=== PATIENT | male | born 1990 | race Caucasian/White ===

== ENCOUNTER 2021-12-06 16:28 | Observation (INO) ==
[2021-12-06 17:52] LABS: Basophils # (auto) 0.06 K/uL (0-0.2); Basophils % (auto) 0.6 %; Eosinophils # (auto) 0.18 K/uL (0-0.50); Eosinophils % (auto) 1.7 %; Hematocrit (blood only) 45.3 % (40.1-51.0); Hemoglobin 15.8 g/dl (14.0-18.0); Immature Granulocytes # (auto) 0.06 K/uL (0.00-0.02); Immature Granulocytes % (auto) 0.6 %; Lymphocytes # (auto) 2.19 K/uL (1.2-3.4); Lymphocytes % (auto) 20.8 %; Mean Corpuscular Hemoglobin 30.6 pg (25.0-34.0); Mean Corpuscular Hgb Conc 34.9 g/dL (32.0-36.0); Mean Corpuscular Volume 87.6 fL (80.0-100.0); Mean Platelet Volume 10.7 fL (9.4-12.4); Monocytes # (auto) 0.95 K/uL (0.24-0.82); Neutrophils % (auto) 67.3 %; Platelet Count 222 K/uL (130-400); RDW Coefficient of Variation 12.2 % (11.5-14.5); Red Blood Count 5.17 M/uL (4.63-6.08); White Blood Count 10.54 K/ul (4.8-10.8)
[2021-12-06 18:06] LABS: Albumin Globulin Ratio 1.3 (0.9-2); Albumin Level 4.5 gm/dl (3.4-5.0); BUN Creatinine Ratio 15.4 (10-20); Bilirubin,Total 0.6 mg/dl (0.2-1.0); Calcium 9.5 mg/dl (8.5-10.1); Creatinine Clr Calc Pharmacy 120.8 ml/min; Est GFR (African American) 95.7 ml/min; Est GFR (Non-African American) 82.6 ml/min; Globulin 3.4 gm/dl (2.5-4.0); Potassium 4.1 mmol/L (3.5-5.1); Total Protein 7.9 gm/dl (6.0-8.3)
[2021-12-06] MEDS ORDERED: SODIUM CHLORIDE 0.9% 1000ML 1,000 ML IV ONE (18:42)
[2021-12-06] MEDS ORDERED: cefTRIAXone SODIUM 2,000 MG/70 ML BAG IV STA (18:42)
--- NOTE | 2021-12-06 18:45 | Emergency Department Note ---
Impression & Plan Cellulitis and abscess of face, Dental abscess ED Provider Note NAME: YASH ZARATE III AGE: 31 SEX: M : 1990 ARRIVES VIA: Walk-In INFORMANT: Patient, ED PROVIDER(S): Willie Luis DO CHIEF COMPLAINT: Dental infection HPI: The patient is a 31-year-old male who presented to the emergency department for an evaluation of dental pain and swelling. The patient was noted to have symptoms for approximately 1-1/2 weeks. He did present to our emergency department last week for similar complaints. He had a CT of his face which did show an abscess. He was started on clindamycin. He called to try to see a dentist and has a follow-up appointment this Monday but his symptoms are worsening so he presented back to the emergency department. He did call the emergency department initially and was told to return to the emergency department. He denies having any vomiting. He states he has pain when he tries to open his mouth. ROS: See above HPI for pertinent positives & negatives. A total of 10 systems reviewed and were otherwise negative. PAST MEDICAL HISTORY: See Below PAST SURGICAL HISTORY: See Below FAMILY HISTORY: See Below SOCIAL HISTORY: See Below HOME MEDICATIONS: See Below ALLERGIES: See Below VITALS: See Below PHYSICAL EXAMINATION: GENERAL: Patient is awake alert in no acute distress patient is resting comfortably and showing no signs of anxiety EYES: The conjunctivae are clear. The pupils are round and reactive. EARS, NOSE, MOUTH AND THROAT: The nose is without any evidence of any deformity. There is a previous dental carry with a filling on the left lower premolar. This area is tender to percussion. There is buccal mucosal swelling. There is no gumline swelling. NECK: The neck is nontender and supple. RESPIRATORY: Normal respiratory effort is noted there is no evidence of wheezing rhonchi or rales CARDIOVASCULAR: Regular rate and rhythm noted there no murmurs rubs or gallops normal S1 normal S2. GASTROINTESTINAL: The abdomen is soft. Abdomen is nontender. MUSCULOSKELETAL/EXTREMITIES: There is no evidence of gross deformity full range of motion is noted in the hips and shoulders. SKIN: There is no obvious evidence of any rash. There are no petechiae, pallor or cyanosis noted. NEUROLOGIC: Patient is awake alert and oriented x3 MEDICAL DECISION MAKING: The patient is a 31-year-old male who presented to the emergency department for an evaluation of facial pain and swelling. The patient was recently seen in our facility and diagnosed with facial cellulitis with an abscess. The patient was started on oral antibiotics but unfortunately was not getting better. He presented to the emergency department because of worsening swelling and pain. The patient did have trismus on physical exam. I discussed patient's laboratory results with him. I discussed his condition with Dr. Blackmon who is on for oral maxillofacial. He does feel the patient would benefit from surgical intervention. He was felt to be a good candidate for inpatient management followed by surgical management in the morning. I discussed this plan with the patient and he was agreeable. I discussed his condition with the on-call [facility] hospitalist. They have agreed to evaluate the patient in the emergency department for further management and disposition. Triage Nursing notes reviewed. Prior medical records reviewed Vital Signs: reviewed and remarkable for no significant abnormalities Differential diagnosis: Dental caries, dental abscess, Ludwigs angina, Vincent angina, dental fracture, facial cellulitis, parotitis, osteomyelitis, sinus infection, peritonsillar abscess. ER treatment provided: See below Diagnostics interpreted by me: ECG: none Laboratory studies: As stated above and show below. Imaging studies: See below Consultation(s): I discussed this case with Dr. Blackmon. I discussed this case with Nia leavitt. Past Med/Surg History Medical History Anxiety Asthma GERD (gastroesophageal reflux disease) Surgical History History of arthroscopy of knee Family History (Updated 12/06/21 @ 20:47 by LAMINE Man) Mother Cancer Father Diabetes Social History Smoking Status: Current every day smoker Cigarettes Per Day: 5; Second Hand Exposure: No; Do You Dip or Chew Tobacco: No; Tobacco Cessation Education Requested by Patient: No Hx Alcohol Use: Yes Alcohol type: beer Alcohol Intake Frequency: Monthly or Less Hx Substance Use: No Preferred Language: Divehi Communication Ability: Effective Lumber Checker Required: No Beliefs That Will Affect Care: None Current Living Situation: Significant Other Other Information That Helps Us Care for You: No Feels Safe at Home: Yes Safety Concerns: Feels Safe At This Time Assistive Devices: Glasses Allergies Allergies Allergy/AdvReac Type Severity Reaction Status Date / Time hydromorphone [From Dilaudid] Allergy Severe Difficulty Verified 12/04/21 20:21 Breathing nut - unspecified Allergy Severe Difficulty Verified 12/04/21 20:21 Breathing shellfish derived Allergy Severe Difficulty Verified 12/04/21 20:21 Breathing Home Meds Home Medications Medication Instructions Recorded Confirmed albuterol sulfate 90 mcg/actuation 2 puff inhalation QID PRN 05/29/20 12/06/21 aerosol inhaler (ProAir HFA) Shortness Of Breath Or Wheezing fluoxetine 10 mg tablet 10 mg PO DAILY 05/29/20 12/06/21 pantoprazole 40 mg tablet,delayed 40 mg PO HS 06/21/21 12/06/21 release famotidine 20 mg tablet 20 mg PO BID 11/02/21 12/06/21 fluoxetine 20 mg capsule 20 mg PO DAILY 11/02/21 12/06/21 omeprazole 40 mg capsule,delayed 40 mg PO QAM 12/04/21 12/06/21 release Previous Rx's Medication Instructions Recorded clindamycin HCl 150 mg capsule 450 mg PO TID 7 days #63 caps 12/04/21 Results & Data (ED) Vital Signs Vital Signs - 24 hr 12/06/21 16:35 12/06/21 19:07 Temperature 36.8 C Temperature Source Temporal Artery Scan Pulse Rate 99 H Pulse Rate [Finger] 67 Respiratory Rate 18 18 Blood Pressure 132/82 Blood Pressure [Right Arm] 105/60 Blood Pressure Mean 98 Blood Pressure Mean [Right Arm] 75 Blood Pressure Position [Right Arm] Semi-fowlers Pulse Oximetry 95 96 Oxygen Delivery Method Room Air Room Air Sepsis Recent Fever Within 48 Hours No Sepsis New/Unexplained Change in Mental Status No Sepsis Action Taken by Nursing No Action Required Home Medications Current Medication List: was personally reviewed by me Laboratory Data Attestation: I reviewed the patient's lab results. Result diagrams: 12/06/21 17:20 12/06/21 17:20 Lab Results 12/06/21 12/06/21 Range/Units 17:20 17:20 WBC 10.54 (4.8-10.8) K/ul RBC 5.17 (4.63-6.08) M/uL Hgb 15.8 (14.0-18.0) g/dl Hct 45.3 (40.1-51.0) % MCV 87.6 (80.0-100.0) fL MCH 30.6 (25.0-34.0) pg MCHC 34.9 (32.0-36.0) g/dL RDW Std Deviation 39.0 (36.4-46.3) fL RDW Coeff of Frank 12.2 (11.5-14.5) % Plt Count 222 (130-400) K/uL MPV 10.7 (9.4-12.4) fL Immature Gran % (Auto) 0.6 % Neut % (Auto) 67.3 % Lymph % (Auto) 20.8 % [place] % (Auto) 9.0 % Eos % (Auto) 1.7 % Baso % (Auto) 0.6 % Neut # (Auto) 7.10 H (1.4-6.5) K/uL Lymph # (Auto) 2.19 (1.2-3.4) K/uL [place] # (Auto) 0.95 H (0.24-0.82) K/uL Eos # (Auto) 0.18 (0-0.50) K/uL Baso # (Auto) 0.06 (0-0.2) K/uL Immature Gran # (Auto) 0.06 H (0.00-0.02) K/uL Sodium 138 (136-145) mmol/L Potassium 4.1 (3.5-5.1) mmol/L Chloride 104 (98-107) mmol/L Carbon Dioxide 28 (21-32) mmol/L Anion Gap 6 (3-11) BUN 18 (6-23) mg/dl Creatinine 1.17 (0.6-1.4) mg/dl Est Cr Clr Drug Dosing 120.8 ml/min Est GFR ( Amer) 95.7 ml/min Est GFR (Non-Af Amer) 82.6 ml/min BUN/Creatinine Ratio 15.4 (10-20) Glucose 96 (70-99(Fasting)) mg/dl Calcium 9.5 (8.5-10.1) mg/dl Total Bilirubin 0.6 (0.2-1.0) mg/dl AST 22 (13-39) U/L ALT 32 (7-52) U/L Alkaline Phosphatase 69 (34-104) U/L Total Protein 7.9 (6.0-8.3) gm/dl Albumin 4.5 (3.4-5.0) gm/dl Globulin 3.4 (2.5-4.0) gm/dl Albumin/Globulin Ratio 1.3 (0.9-2) Administered Medications Famotidine (Famotidine 20 Mg Tab) 20 mg PO BID TAMIKA Stop: 01/05/22 22:49 Last Admin: 12/06/21 23:55 Dose: 20 mg Documented By: LEONOR Pantoprazole Sodium (Pantoprazole 40 Mg Tab) 40 mg PO HS TAMIKA Stop: 01/05/22 22:49 Last Admin: 12/06/21 23:55 Dose: 40 mg Documented By: LEONOR Discontinued Medications Sodium Chloride (Nss 1000ml) 1,000 mls @ 999 mls/hr IV .Q1H1M ONE Stop: 12/06/21 19:42 Last Infusion: 12/06/21 20:12 Dose: 0 mls/hr Documented By: Admin: 12/06/21 19:06 Dose: 999 mls/hr Documented By: TRH Ceftriaxone Sodium (Rocephin) 2,000 mg in 70 mls @ 140 mls/hr IV NOW STA Stop: 12/06/21 19:11 Last Infusion: 12/06/21 19:38 Dose: 0 mls/hr Documented By: Admin: 12/06/21 19:06 Dose: 140 mls/hr Documented By: RENARD Ampicillin Sodium/Sulbactam Sodium 3,000 mg/ Sodium Chloride 108 mls @ 200 mls/hr IV NOW STA; Protocol Stop: 12/06/21 21:24 Last Infusion: 12/06/21 21:39 Dose: 0 mls/hr Documented By: Admin: 12/06/21 21:00 Dose: 200 mls/hr Documented By: KATHRYN Ketorolac Tromethamine (Ketorolac Tromethamine 15 Mg/Ml Vial) 10 mg IV NOW ONE Stop: 12/06/21 19:54 Last Admin: 12/06/21 20:38 Dose: 10 mg Documented By: RENARD Morphine Sulfate (Morphine Sulfate 4 Mg/Ml 1 Ml Carp\Vial) 4 mg IV NOW STA Stop: 12/06/21 19:54 Last Admin: 12/06/21 20:37 Dose: 4 mg Documented By: RENARD Ondansetron HCl (Ondansetron Inj 2 Mg/Ml 2 Ml Vial) 4 mg IV NOW STA Stop: 12/06/21 19:54 Last Admin: 12/06/21 20:37 Dose: 4 mg Documented By: RENARD Discharge Plan Visit Data Chief Complaint: Dental/Oral Stated Complaint: TOOTH ABSCESS/INFECTION ED Provider: Willie Luis Discharge Problem: Cellulitis and abscess of face, Dental abscess Patient Disposition: Admitted As Inpatient Discharge Instructions Interventions: ED Discharge Assessment Last Done: 12/06/21 22:21
[2021-12-06] MEDS ORDERED: KETOROLAC TROMETHAMINE 15 MG/ML VIAL IV ONE (19:53)
[2021-12-06] MEDS ORDERED: MoRPHine SULFATE 4 MG/ML 1 ML CARP\\VIAL IV STA (19:53)
[2021-12-06] MEDS ORDERED: ONDANSETRON INJ 2 MG/ML 2 ML VIAL IV STA (19:53)
[2021-12-06] MEDS ORDERED: AMPICILLIN/SULBACTAM SOD 3,000 MG in 0.9 % SODIUM CHLORIDE 100 ML IV STA (20:52)
--- NOTE | 2021-12-06 20:56 | History & Physical Report ---
Date of Service December 06, 2021 Assessment & Plan (1) Acute periapical abscess: Plan: Admit to [facility] Patient presenting from home with reports of worsening left cheek/dental pain and swelling Seen in the ED on 12/04 and diagnosed with dental abscess, discharged on cli ndamycin Soft tissue neck CT from 12/04/2021 shows 1.6 cm periapical lucency and adjacent 2.0 cm abscess Airway patent, patient hemodynamically stable Start IV Unasyn Pain control Maxillofacial consult --Dr. Blackmon notified by ED and planning on OR tomorrow (2) GERD (gastroesophageal reflux disease): Plan: Continue PPI and H2 [place] (3) DVT prophylaxis: Plan: SCDs History of Present Illness Chief Complaint: Dental pain Primary Care Provider: Leandro Warren PA-C 31-year-old male with PMH GERD, asthma, seasonal allergies, and other problems to below who presents to the ED for evaluation of dental pain. Patient seen in the ED on 12/04 and diagnosed with dental abscess. Discharged on clindamycin. Patient reports progressive worsening of swelling and pain. He then presented back to the ED for further evaluation. Reports difficulty opening his mouth. No difficulty swallowing or shortness of breath. Denies fevers and chills. No chest pain or shortness of breath. Denies abdominal pain, nausea, vomiting, diarrhea. No lightheadedness, dizziness, diaphoresis, syncopal events. Denies urinary symptoms. In the ED today, patient is hemodynamically stable. Labs are unremarkable. He received a dose of IV ceftriaxone. Dr. Blackmon with oral surgery was contacted and is planning on taking the patient to the OR tomorrow. Allergies Allergy/AdvReac Type Severity Reaction Status Date / Time hydromorphone [From Dilaudid] Allergy Severe Difficulty Verified 12/04/21 20:21 Breathing nut - unspecified Allergy Severe Difficulty Verified 12/04/21 20:21 Breathing shellfish derived Allergy Severe Difficulty Verified 12/04/21 20:21 Breathing Home Medications Medication Instructions Recorded Confirmed Type albuterol sulfate 90 mcg/actuation 2 puff inhalation QID PRN 05/29/20 12/06/21 History aerosol inhaler (ProAir HFA) Shortness Of Breath Or Wheezing fluoxetine 10 mg tablet 10 mg PO DAILY 05/29/20 12/06/21 History pantoprazole 40 mg tablet,delayed 40 mg PO HS 06/21/21 12/06/21 History release famotidine 20 mg tablet 20 mg PO BID 11/02/21 12/06/21 History fluoxetine 20 mg capsule 20 mg PO DAILY 11/02/21 12/06/21 History clindamycin HCl 150 mg capsule 450 mg PO TID 7 days #63 caps 12/04/21 12/06/21 Rx omeprazole 40 mg capsule,delayed 40 mg PO QAM 12/04/21 12/06/21 History release Past Med/Surg History Medical History Anxiety Asthma GERD (gastroesophageal reflux disease) Surgical History History of arthroscopy of knee Family History (Updated 12/06/21 @ 20:47 by LAMINE Man) Mother Cancer Father Diabetes Social History Smoking Status: Current every day smoker Hx Alcohol Use: Yes Alcohol type: beer Alcohol Intake Frequency: Monthly or Less Preferred Language: Maltese Feels Safe at Home: Yes Review of Systems Review of Systems: ROS per HPI, all other systems reviewed and negative Physical Exam Constitutional: WD/WN, vitals as above Eyes: PERRL, conjunctivae normal, anicteric sclerae ENMT: Ears: no external ear abnormality Nose: no external nose abnormality Mouth: + trismus Swelling noted to left cheek that is tender with mild palpation, no oral abscess or fluctuance noted Respiratory: normal respiratory effort, lungs clear to auscultation Cardiovascular: Rate/Rhythm: regular rate and regular rhythm Vessels: normal peripheral pulses Extremities: no edema Gastrointestinal (Abdomen): normal bowel sounds, soft, nontender, no hepatosplenomegaly Musculoskeletal: no cyanosis or clubbing, extremities motor strength 5/5 Skin: no rashes, warm and dry Neurologic: PERRL, EOMI, accommodation nl, no face palsy, no dysarthria Psychiatric: A+Ox3, euthymic affect Results & Data Results & Data ([facility]) Vital Signs (Past 12 Hours) Vital Signs Temp Pulse Pulse Resp BP BP Pulse Ox 12/06/21 19:07 67 18 105/60 96 12/06/21 16:35 36.8 C 99 H 18 132/82 95 O2 Del Method 07/18/22 19:07 Room Air 12/06/21 16:35 Room Air Laboratory Results Short CBC 12/06/21 Range/Units 17:20 WBC 10.54 (4.8-10.8) K/ul Hgb 15.8 (14.0-18.0) g/dl Hct 45.3 (40.1-51.0) % Plt Count 222 (130-400) K/uL BMP 12/06/21 17:20 Sodium 138 Potassium 4.1 Chloride 104 Carbon Dioxide 28 BUN 18 Creatinine 1.17 Glucose 96 Calcium 9.5 Liver Function 12/06/21 Range/Units 17:20 Total Bilirubin 0.6 (0.2-1.0) mg/dl AST 22 (13-39) U/L ALT 32 (7-52) U/L Alkaline Phosphatase 69 (34-104) U/L Albumin 4.5 (3.4-5.0) gm/dl Diagnostic Findings 12/04/[address] IMPRESSION: 1. A 1.6 cm periapical lucency at ADA 19 which demonstrates cortical breakthrough along the buccal surface and an adjacent 2 cm abscess. 2. There is associated skin thickening and subcutaneous fat stranding/edema within the left mandibular region likely representing an associated cellulitis. Code Status & VTE Plan VTE Prophylaxis Plan VTE Prophylaxis will be ordered: Yes Supervising Physician Co-Signing Physician Notes Patient was seen and examined with Nia RAMAN at bedside. Chart reviewed. Case discussed with her and agree with the documentation above in regards to HPI, physical exam, assessment and plan. In summary, this is a 31 old male who presented to the ED with worsening dental pain. She was seen in the ED 2 days back, found to have dental abscess with cellulitis and discharged on clindamycin but had worsening symptoms and came today. Doesn't look sick or septic. Labs unremarkable. Agree with iv Unasyn and pain management. Dr Blackmon planning for OR tomorrow. NPO after midnight. Rest as per the note above.
[2021-12-06] MEDS ORDERED: MoRPHine SULFATE 2 MG/ML CARP IV PRN (22:50)
[2021-12-06] MEDS ORDERED: ONDANSETRON INJ 2 MG/ML 2 ML VIAL IV PRN (22:50)
[2021-12-06] MEDS: PANTOprazole 40 MG TAB PO SCH (23:55)
[2021-12-06] MEDS: FAMOTIDINE 20 MG TAB PO SCH (23:55)
[2021-12-07] MEDS: MoRPHine SULFATE 4 MG/ML 1 ML CARP\\VIAL IV PRN ×2 (01:34→07:21)
[2021-12-07] MEDS: AMPICILLIN/SULBACTAM SOD 3,000 MG in 0.9 % SODIUM CHLORIDE 100 ML IV SCH ×5 (04:06→21:57)
--- NOTE | 2021-12-07 06:41 | Oral/Maxillofacial Consult ---
Date of Consultation December 07, 2021 Assessment & Plan (1) Cellulitis and abscess of face: (2) Dental abscess: History of Present Illness Attending Physician: Ryan Park MD History of Present Illness Oral Maxillofacial Surgery Exam Present Complaint: I have pain/swelling/drainage from my infected lower left tooth Symptoms have been ongoing for a while. Not responding to antibiotics ? infected cyst Oral Exam: Finding--significant swelling and tender gingival tissue with deep pocket formation left muco buccal fold and masseteric space, slight trismus . this looks to be a large cyst that has become infected Imaging: CT soft tissue neck wo con FINDINGS: Suboptimal evaluation of the neck due to the lack of intravenous contrast. The visualized brain parenchyma and orbits are unremarkable. The pterygopalatine fossa and parapharyngeal fat spaces are well-maintained. The parotid and submandibular glands are symmetric. There is mild left submandibular lymphadenopathy which is likely reactive. The major mucosal airways services appear intact. The epiglottis and prevertebral soft tissues are normal in thickness. The thyroid gland is unremarkable. The trachea is midline and patent. The lung apices are clear. No fractures within the visualized osseous structures. The paranasal sinuses and mastoid air cells are essentially clear. There is a large periapical lucency at the endodontically treated ADA 19. This measures 1.6 cm and demonstrates cortical breakthrough along the buccal surface. Although difficult to visualize without contrast. There appears to be an adjacent abscess within the buccal soft tissues of the left hemimandible which measures approximately 2 cm. There is overlying skin thickening and subcutaneous fat stranding/edema consistent with a cellulitis. IMPRESSION: 1. A 1.6 cm periapical lucency at ADA 19 which demonstrates cortical breakthrough along the buccal surface and an adjacent 2 cm abscess. 2. There is associated skin thickening and subcutaneous fat stranding/edema within the left mandibular region likely representing an associated cellulitis. Soft tissue: Significant swelling left cheek and mucobuccal fold # 19 tooth floor of the mouth, tongue, hard/soft palate, posterior pharyngeal area all with in normal limits, no pathology or abnormal findings noted. Oral Care: Overall oral care is good Occlusion: Class I TMJ exam: Limited opening not able to exam. Periodontal exam: Healthy gingival tissue without evidence of periodontal pathology except lower left side Head/Neck exam: Neck is supple, FROM, Able to extend and flex neck w/o difficulty, no masses other then swelling left side , no abnormalities, no airway issues, no evidence of sleep apnea. Treatment Plan: Excision large cyst lower left mandible body. I&D and extraction of # 19 Set up with general anesthesia in hospital vs. surgical due to complexity of the procedure I reviewed the treatment plan and consent with the patient . Understanding was expressed. Time was given for questions regarding the surgery, risks and post op care. Discussed alternative to treatment--procedure as planned, Do not do surgery The following teeth are decayed and fractured and removal is indicated NISHANT: # 19 with intraoral I&D Risks discussed: Bleeding,Pain,swelling,infection, dry socket, delayed healing, nerve injury to face,lips,tongue,chin area which could be permanent (rare). TMJ, jaw stiffness, change in bite (rare), ear pain (referred). Sinus problems like fistula or infection. Need to leave a small root fragment in place to avoid injury to nerve or sinus. Relationship of wisdom teeth to nerve/sinus and risk of jaw fracture. Home care reviewed: tooth brushing, rinsing, follow up care with Dr Blackmon. diet=[id number] dental. Discussed activity level, driving/work while on Rx pain Meds. Surgery to be set up NISHANT this morning Allergies Allergy/AdvReac Type Severity Reaction Status Date / Time hydromorphone [From Dilaudid] Allergy Severe Difficulty Verified 12/04/21 20:21 Breathing nut - unspecified Allergy Severe Difficulty Verified 12/04/21 20:21 Breathing shellfish derived Allergy Severe Difficulty Verified 12/04/21 20:21 Breathing Home Medications Medication Instructions Recorded Confirmed Type albuterol sulfate 90 mcg/actuation 2 puff inhalation QID PRN 05/29/20 12/06/21 History aerosol inhaler (ProAir HFA) Shortness Of Breath Or Wheezing fluoxetine 10 mg tablet 10 mg PO DAILY 05/29/20 12/06/21 History pantoprazole 40 mg tablet,delayed 40 mg PO HS 06/21/21 12/06/21 History release famotidine 20 mg tablet 20 mg PO BID 11/02/21 12/06/21 History fluoxetine 20 mg capsule 20 mg PO DAILY 11/02/21 12/06/21 History clindamycin HCl 150 mg capsule 450 mg PO TID 7 days #63 caps 12/04/21 12/06/21 Rx omeprazole 40 mg capsule,delayed 40 mg PO QAM 12/04/21 12/06/21 History release Patient History Medical History Anxiety Asthma GERD (gastroesophageal reflux disease) Surgical History History of arthroscopy of knee Family History (Updated 12/06/21 @ 20:47 by LAMINE Man) Mother Cancer Father Diabetes Social History Smoking Status: Current every day smoker Cigarettes Per Day: 5; Second Hand Exposure: No; Do You Dip or Chew Tobacco: No; Tobacco Cessation Education Requested by Patient: No Hx Alcohol Use: Yes Alcohol type: beer Alcohol Intake Frequency: Monthly or Less Hx Substance Use: No Preferred Language: Azerbaijani Communication Ability: Effective Studio Assistant Required: No Beliefs That Will Affect Care: None Current Living Situation: Significant Other Other Information That Helps Us Care for You: No Feels Safe at Home: Yes Safety Concerns: Feels Safe At This Time Assistive Devices: Glasses Results & Data ([facility]) Vital Signs (Past 12 Hours) Vital Signs Temp Pulse Pulse Resp BP BP Pulse Ox 12/06/21 22:40 12/06/21 22:40 12/06/21 22:40 36.5 C 75 18 125/81 94 12/06/21 22:21 89 18 133/66 95 12/06/21 21:02 80 18 105/60 95 12/06/21 19:07 67 18 105/60 96 O2 Del Method 12/06/21 22:40 Room Air 12/06/21 22:40 Room Air 12/06/21 22:40 Room Air 12/06/21 22:21 Room Air 12/06/21 21:02 Room Air 12/06/21 19:07 Room Air PG Care Time/CCT Total # of Minutes Spent Total Time Spent with Patient: Total time spent is greater than 50% in coordination of care (as documented) at patient's floor/unit and/or counseling patient: Coding Level of Care Code 59972 Inpt Consult Level 3 Diagnoses Cellulitis and abscess of face L03.211; L02.01 Dental abscess K04.7
[2021-12-07] MEDS: FAMOTIDINE 20 MG TAB PO SCH ×2 (07:17→21:22)
[2021-12-07] MEDS: FLUoxetine HCL 10 MG CAP PO SCH (07:17)
[2021-12-07] MEDS: FLUoxetine HCL 20 MG CAP PO SCH (07:17)
[2021-12-07 08:55] LABS: Hematocrit (blood only) 42.9 % (40.1-51.0); Hemoglobin 14.7 g/dl (14.0-18.0); Mean Corpuscular Hemoglobin 30.5 pg (25.0-34.0); Mean Corpuscular Hgb Conc 34.3 g/dL (32.0-36.0); Mean Platelet Volume 10.5 fL (9.4-12.4); Platelet Count 197 K/uL (130-400); RDW Coefficient of Variation 12.3 % (11.5-14.5); Red Blood Count 4.82 M/uL (4.63-6.08); White Blood Count 9.47 K/ul (4.8-10.8)
[2021-12-07] MEDS ORDERED: NON-FORMULARY MEDICATION (Omeprazole 40 mg capsule,delayed release(DR/EC)) PO SCH (09:00)
[2021-12-07 09:19] LABS: BUN Creatinine Ratio 16.4 (10-20); Calcium 8.4 mg/dl (8.5-10.1); Creatinine Clr Calc Pharmacy 121.6 ml/min; Est GFR (African American) 96.7 ml/min; Est GFR (Non-African American) 83.5 ml/min; Potassium 4.1 mmol/L (3.5-5.1)
[2021-12-07] MEDS ORDERED: LIDOCAINE 2% MPF LOCAL 5 ML VIAL INFIL ONE (10:06)
[2021-12-07] MEDS ORDERED: MIDAZOLAM HCL 1 MG/ML 2ML VIAL ONE (10:06)
[2021-12-07] MEDS ORDERED: PROPOFOL IV EMULSION 10 MG/ML 20 ML VIAL IV ONE (10:06)
[2021-12-07] MEDS ORDERED: fentaNYL citrate 100 MCG/2 ML VIAL ONE ×2 (10:06→11:07)
--- NOTE | 2021-12-07 10:29 | History & Physical Bridge Note ---
Date of Service December 07, 2021 History & Physical Bridge Note I have examined the patient, reviewed the History & Physical and in the interval since the performance of the History & Physical I have noted the following changes of clinical significance: no changes noted OK for the I&D this AM with extraction of # 19
[2021-12-07] MEDS ORDERED: ONDANSETRON INJ 2 MG/ML 2 ML VIAL IV PRN (10:32)
[2021-12-07] MEDS ORDERED: FLUMAZENIL 0.1 MG/1 ML 10 ML VIAL IV PRN (10:32)
[2021-12-07] MEDS ORDERED: ePHEDrine sulfate 50 MG/ML AMP IV PRN (10:32)
[2021-12-07] MEDS ORDERED: ATROPINE SULFATE 0.1 MG/ML 10ML SYR IV PRN (10:32)
[2021-12-07] MEDS ORDERED: fentaNYL citrate 100 MCG/2 ML VIAL IV PRN (10:32)
[2021-12-07] MEDS ORDERED: NALOXONE HCL 0.4 MG/1 ML VIAL/CARP IV PRN (10:32)
[2021-12-07] MEDS ORDERED: PROMETHAZINE HCL 12.5 MG in SODIUM CHLORIDE 0.9% 50 ML IV PRN (10:32)
--- NOTE | 2021-12-07 10:32 | Anesthesiology Consultation ---
Date of Service December 07, 2021 Assessment & Plan Chart Review Chart Review: Acceptable Risk for Surgery and Patient NOT seen in Pre Admission Testing Consults Requested none ASA ASA2 Proposed Anesthesia Anesthesia Type: General Risk / Benefits Reviewed With: PT / POA / Parent / Guardian, Accepts Plan and Informed Consent Obtained Additional Comments: covid test negative History Surgery Operation Date: 12/07/21 08:00 Proposed Procedures p Incision and Drainage Left Face - Nato Blackmon, DMD s Extraction one tooth - Nato Blackmon DMD Height/Weight Height: 6 ft Weight: 116.5 kg Allergies Allergy/AdvReac Type Severity Reaction Status Date / Time hydromorphone [From Dilaudid] Allergy Severe Difficulty Verified 12/04/21 20:21 Breathing nut - unspecified Allergy Severe Difficulty Verified 12/04/21 20:21 Breathing shellfish derived Allergy Severe Difficulty Verified 12/04/21 20:21 Breathing Medications Home Medications Medication Instructions Recorded Confirmed Last Taken albuterol sulfate 90 mcg/actuation 2 puff inhalation QID PRN 05/29/20 12/06/21 06/19/21 aerosol inhaler (ProAir HFA) Shortness Of Breath Or Wheezing fluoxetine 10 mg tablet 10 mg PO DAILY 05/29/20 12/06/21 12/04/21 pantoprazole 40 mg tablet,delayed 40 mg PO HS 06/21/21 12/06/21 12/03/21 release famotidine 20 mg tablet 20 mg PO BID 11/02/21 12/06/21 12/04/21 08:00 fluoxetine 20 mg capsule 20 mg PO DAILY 11/02/21 12/06/21 12/04/21 clindamycin HCl 150 mg capsule 450 mg PO TID 7 days #63 caps 12/04/21 12/06/21 Unknown omeprazole 40 mg capsule,delayed 40 mg PO QAM 12/04/21 12/06/21 12/04/21 release Active Medications Generic Name Dose Route Start Last Admin Trade Name Sukhiq PRN Reason Stop Dose Admin Famotidine 20 mg 12/06/21 22:50 12/07/21 07:17 Famotidine 20 Mg Tab PO 01/05/22 22:49 20 mg BID TAMIKA Administration Fluoxetine HCl 10 mg 12/07/21 09:00 12/07/21 07:17 Fluoxetine Hcl 10 Mg Cap PO 01/06/22 08:59 10 mg DAILY TAMIKA Administration Fluoxetine HCl 20 mg 12/07/21 09:00 12/07/21 07:17 Fluoxetine Hcl 20 Mg Cap PO 01/06/22 08:59 20 mg DAILY TAMIKA Administration Ampicillin Sodium/Sulbactam 108 mls @ 200 mls/hr 12/07/21 04:00 12/07/21 04:47 Sodium 3,000 mg/ Sodium IV 12/14/21 03:59 Infused Chloride Q6H TAMIKA Infusion Protocol Morphine Sulfate 4 mg 12/06/21 22:50 12/07/21 07:21 Morphine Sulfate 4 Mg/Ml 1 Ml Carp\Vial IV 12/20/21 22:49 4 mg Q4H PRN Administration Pain (6,7,8,9,10) Pantoprazole Sodium 40 mg 12/06/21 22:50 12/06/21 23:55 Pantoprazole 40 Mg Tab PO 01/05/22 22:49 40 mg HS TAMIKA Administration NPO Date Last Intake of Fluids: 12/06/21 Time Last Intake of Fluids: 23:50 Last Intake of Fluids Comment: sip with meds today Date Last Intake of Solids: 12/06/21 Time Last Intake of Solids: 20:00 Past Medical History Medical History Anxiety Asthma GERD (gastroesophageal reflux disease) Exercise / Class Metabolic Activity II 4-5 Yardwork/Stairs/Walk up hill Past Family History Family History Mother Cancer Father Diabetes Past Surgical History Surgical History History of arthroscopy of knee Past Anesthesia History No Hx of Anesthesia Complications and No Family Hx of Anesthesia Complications History of PONV No Hx of PONV and No Hx of Motion Sickness Social History Smoking Status: Current every day smoker tobacco type: cigarettes Smoking cigarettes per day: 5 Do You Dip or Chew Tobacco: No Hx Alcohol Use: Yes Alcohol type: beer alcohol intake frequency: holidays/special occasions only Hx Substance Use: No Physical Exam Vital Signs Last Vital Signs Temp 36.8 C 12/07/21 10:17 Pulse 64 12/07/21 10:17 Resp 18 12/07/21 10:17 BP 104/75 12/07/21 10:17 Pulse Ox 96 12/07/21 10:17 O2 Del Method 12/07/21 10:17 Constitutional + obese ENMT Mouth: + dentition abnormality and + poor dentition Thyromental Distance: > or= 3.5 Finger Breadths Mallampati Class: Other (trismus) Neck normal visual inspection and trachea midline; neck extension not limited Respiratory normal respiratory effort Auscultation: lungs clear to auscultation bilaterally Cardiovascular Rate/Rhythm: regular rate and regular rhythm Heart Sounds: no murmur Vessels: no carotid bruit Musculoskeletal Spine: normal cervical ROM Extremities: extremities normal to inspection Neurologic moves all extremities Motor/Sensory: no sensory deficit Psychiatric Orientation: alert and oriented x 3 Testing Laboratory Results 12/07/21 08:23 12/07/21 08:23
[2021-12-07] MEDS ORDERED: CHLORHEXIDINE GLUCONATE 0.12% 480 ML ONE (10:38)
[2021-12-07] MEDS ORDERED: BUPIVACAINE/EPINEPHRINE 0.5% 1:200,000 1.8 ML CARP ONE (10:38)
[2021-12-07] MEDS ORDERED: DEXAMETHASONE SOD INJ 4 MG/ML VIAL ONE (11:08)
[2021-12-07] MEDS ORDERED: ROCURONIUM BROMIDE 10 MG/ML 5 ML VIAL IV ONE (11:08)
[2021-12-07] MEDS ORDERED: NEOSTIGMINE METHYLSULFATE 1 MG/ML 10ML VIAL ONE (11:08)
[2021-12-07] MEDS ORDERED: SUCCINYLCHOLINE CHLORIDE 20 MG/ML 10 ML VIAL IV ONE (11:08)
[2021-12-07] MEDS ORDERED: GLYCOPYRROLATE 0.2 MG/ML VIAL ONE (11:08)
[2021-12-07] MEDS ORDERED: ONDANSETRON INJ 2 MG/ML 2 ML VIAL ONE (11:08)
--- NOTE | 2021-12-07 13:11 | Anesthesiology Progress Note ---
Date of Service December 07, 2021 Anesthesia Post Procedure Vital Signs Vital Signs: Temp Pulse Pulse Pulse Resp BP BP 12/07/21 12:30 71 20 123/73 12/07/21 12:20 63 16 119/74 12/07/21 12:10 68 15 114/74 12/07/21 13:00 82 15 125/66 12/07/21 12:50 36.5 C 71 16 112/66 12/07/21 12:40 70 20 119/65 12/07/21 12:00 64 20 118/67 12/07/21 11:53 36.1 C L 61 18 124/79 12/07/21 10:17 36.8 C 64 18 104/75 12/07/21 08:00 12/07/21 06:55 36.8 C 73 16 118/80 12/06/21 22:40 12/06/21 22:40 12/06/21 22:40 36.5 C 75 18 125/81 12/06/21 22:21 89 18 133/66 12/06/21 21:02 80 18 105/60 12/06/21 19:07 67 18 105/60 12/06/21 16:35 36.8 C 99 H 18 132/82 Pulse Ox O2 Del Method O2 Flow Rate 12/07/21 12:30 93 Nasal Cannula 3 12/07/21 12:20 95 Oxymask 6 12/07/21 12:10 95 Oxymask 6 12/07/21 13:00 94 Nasal Cannula 3 12/07/21 12:50 95 Nasal Cannula 3 12/07/21 12:40 93 Nasal Cannula 3 12/07/21 12:00 99 Oxymask 6 12/07/21 11:53 96 Oxymask 6 12/07/21 10:17 96 Room Air 12/07/21 08:00 Room Air 12/07/21 06:55 95 Room Air 12/06/21 22:40 Room Air 12/06/21 22:40 Room Air 12/06/21 22:40 94 Room Air 12/06/21 22:21 95 Room Air 12/06/21 21:02 95 Room Air 12/06/21 19:07 96 Room Air 12/06/21 16:35 95 Room Air Pain Intensity Left Face: Pain Intensity: 0 Transfer of Care Handoff Completed per policy Notes Mental Status: alert / awake / arousable Patient Amnestic to Procedure: Yes Nausea / Vomiting: adequately controlled Pain: adequately controlled Airway Patency, RR, SpO2: stable & adequate BP & HR: stable & adequate Hydration State: stable & adequate Anesthetic Complications: no major complications apparent
[2021-12-07] MEDS: ACETAMINOPHEN 325 MG TAB PO PRN (15:54)
[2021-12-07] MEDS: NICOTINE 14 MG/24 HR PATCH TD SCH (17:46)
--- NOTE | 2021-12-07 18:47 | Hospitalist Progress Note ---
Date of Service December 07, 2021 Assessment & Plan (1) Acute periapical abscess: Plan: Admit to [facility] Patient presenting from home with reports of worsening left cheek/dental pain and swelling, failure of outpatient therapy. Seen in the ED on 12/04 and diagnosed with dental abscess, discharged on clindamycin Soft tissue neck CT from 12/04/2021 shows 1.6 cm periapical lucency and adjacent 2.0 cm abscess Status post I&D 12/07/2021. Continue with Unasyn. Pain control Patient sedated at bedside exam, reporting numbness, would like to go home tomorrow. (2) GERD (gastroesophageal reflux disease): Plan: Continue PPI and H2 verona (3) DVT prophylaxis: Plan: SCDs Admission and Anticipated Discharge Date Admission Date: December 06, 2021 Subjective Patient seen and examined at bedside for follow-up of acute. Physical abscess status post I&D by [facility] 12/07/2021. Patient was lying in bed, lethargic/sleepy likely secondary to anesthesia effect, denies pain at operative site but reports numbing sensation, denies headache, denies chest pain or cough, denies any acute changes in bowel or bladder habit. Patient is started on diet and is tolerating. Physical Exam Physical Exam: GENERAL: Alert and oriented x3. NAD, on RA. HEENT: No pallor, no icterus. Pupils equal, round and reactive to light. Oral mucosa moist. Left cheek swellling. NECK: No JVD, no neck masses. HEART: S1 and S2 heard. Regular rate and rhythm. No murmur, no gallop. RESPIRATORY SYSTEM: Normal AP diameter. No accessory muscle use. No wheezing, no crackles. ABDOMEN: Soft, bowel sounds present, nontender, no distention. CENTRAL NERVOUS SYSTEM: No facial droop. Speech is clear. Obeys simple commands. Moves extremities. EXTREMITIES: No edema, no erythema seen. Results & Data Results & Data ([facility]) Vital Signs (Past 12 Hours) Vital Signs Temp Pulse Pulse Resp BP Pulse Ox O2 Del Method 12/07/21 16:35 36.8 C 85 16 102/64 94 Room Air 12/07/21 14:28 36.7 C 75 16 108/68 93 Room Air 12/07/21 14:02 36.3 C L 84 16 108/70 92 Room Air 12/07/21 12:43 36.9 C 86 18 118/68 94 Room Air 12/07/21 13:31 36.9 C 93 H 18 144/86 H 93 Room Air 12/07/21 12:30 71 20 123/73 93 Nasal Cannula 12/07/21 12:20 63 16 119/74 95 Oxymask 12/07/21 12:10 68 15 114/74 95 Oxymask 12/07/21 13:25 77 16 123/71 95 Nasal Cannula 12/07/21 13:10 80 14 117/63 95 Nasal Cannula 12/07/21 13:00 82 15 125/66 94 Nasal Cannula 12/07/21 12:50 36.5 C 71 16 112/66 95 Nasal Cannula 12/07/21 12:40 70 20 119/65 93 Nasal Cannula 12/07/21 12:00 64 20 118/67 99 Oxymask 12/07/21 11:53 36.1 C L 61 18 124/79 96 Oxymask 12/07/21 10:17 36.8 C 64 18 104/75 96 Room Air 12/07/21 08:00 Room Air 12/07/21 06:55 36.8 C 73 16 118/80 95 Room Air O2 Flow Rate 12/07/21 16:35 12/07/21 14:28 12/07/21 14:02 12/07/21 12:43 12/07/21 13:31 12/07/21 12:30 3 12/07/21 12:20 6 12/07/21 12:10 6 12/07/21 13:25 3 12/07/21 13:10 3 12/07/21 13:00 3 12/07/21 12:50 3 12/07/21 12:40 3 12/07/21 12:00 6 12/07/21 11:53 6 12/07/21 10:17 12/07/21 08:00 12/07/21 06:55
[2021-12-07] MEDS: PANTOprazole 40 MG TAB PO SCH (21:22)
[2021-12-07] MEDS: CHLORHEXIDINE GLUCONATE 0.12% 480 ML MT SCH (21:24)
[2021-12-08] MEDS ORDERED: CHLORASEPTIC 1.4% SOLN 180 ML BTL MT PRN (02:09)
[2021-12-08] MEDS: AMPICILLIN/SULBACTAM SOD 3,000 MG in 0.9 % SODIUM CHLORIDE 100 ML IV SCH ×3 (03:41→11:12)
[2021-12-08] MEDS: ACETAMINOPHEN 325 MG TAB PO PRN (04:06)
[2021-12-08] MEDS: MoRPHine SULFATE 4 MG/ML 1 ML CARP\\VIAL IV PRN ×2 (04:49→08:17)
[2021-12-08] MEDS: FAMOTIDINE 20 MG TAB PO SCH (08:22)
[2021-12-08] MEDS: CHLORHEXIDINE GLUCONATE 0.12% 480 ML MT SCH (08:22)
[2021-12-08] MEDS: FLUoxetine HCL 20 MG CAP PO SCH (08:23)
[2021-12-08] MEDS: FLUoxetine HCL 10 MG CAP PO SCH (08:23)
[2021-12-08] MEDS: NICOTINE 14 MG/24 HR PATCH TD SCH (08:24)
[2021-12-08 08:32] LABS: Hemoglobin 14.6 g/dl (14.0-18.0); Mean Corpuscular Hemoglobin 30.5 pg (25.0-34.0); Mean Corpuscular Hgb Conc 35.6 g/dL (32.0-36.0); Mean Corpuscular Volume 85.8 fL (80.0-100.0); Mean Platelet Volume 10.7 fL (9.4-12.4); Platelet Count 213 K/uL (130-400); RDW Standard Deviation 37.8 fL (36.4-46.3); Red Blood Count 4.78 M/uL (4.63-6.08); White Blood Count 10.99 K/ul (4.8-10.8)
[2021-12-08 09:05] LABS: BUN Creatinine Ratio 14.7 (10-20); Calcium 8.8 mg/dl (8.5-10.1); Creatinine Clr Calc Pharmacy 148.5 ml/min; Est GFR (African American) 123.1 ml/min; Est GFR (Non-African American) 106.2 ml/min; Phosphorus 4.4 mg/dl (2.5-4.9); Potassium 3.9 mmol/L (3.5-5.1)
--- NOTE | 2021-12-08 10:05 | Oral/Maxillofacial Progress Nt ---
Date of Service December 08, 2021 Assessment & Plan Admission and Anticipated Discharge Date Admission Date: December 06, 2021 Subjective Post Op infection evaluation 24 hours The infected area is now responding very well. Swelling is decreasing well and the tissue looks great No drainage is noted. Cultures pending Infection has responded very well to the antibiotics, extraction # 19 and the I and D. I requested that the patient continue with massage, heat and wound care. At this time the area is much improved and responded well to treatment. RTC Dec 21 at 3:[address] Blackmon RX Vicodin 5/325 x 20 Augmentin 875 x 10 days Results & Data ([facility]) Vital Signs (Past 12 Hours) Vital Signs Temp Pulse Resp BP Pulse Ox O2 Del Method 12/08/21 07:36 36.7 C 78 18 122/64 94 Room Air 12/08/21 04:00 36.5 C 76 18 115/75 93 Room Air 12/07/21 22:32 36.6 C 84 18 125/78 92 Room Air PG Care Time/CCT Total # of Minutes Spent Total Time Spent with Patient: Total time spent is greater than 50% in coordination of care (as documented) at patient's floor/unit and/or counseling patient: Coding Level of Care Code None
--- NOTE | 2021-12-08 11:58 | Discharge Summary ---
Date of Service December 08, 2021 Admission HPI Per Admitting Provider 31-year-old male with PMH GERD, asthma, seasonal allergies, and other problems to below who presents to the ED for evaluation of dental pain. Patient seen in the ED on 12/04 and diagnosed with dental abscess. Discharged on clindamycin. Patient reports progressive worsening of swelling and pain. He then presented back to the ED for further evaluation. Reports difficulty opening his mouth. No difficulty swallowing or shortness of breath. Denies fevers and chills. No chest pain or shortness of breath. Denies abdominal pain, nausea, vomiting, diarrhea. No lightheadedness, dizziness, diaphoresis, syncopal events. Denies urinary symptoms. In the ED today, patient is hemodynamically stable. Labs are unremarkable. He received a dose of IV ceftriaxone. Dr. Blackmon with oral surgery was contacted and is planning on taking the patient to the OR tomorrow. Admission Exam Per Admitting Provider Constitutional: WD/WN, vitals as above Eyes: PERRL, conjunctivae normal, anicteric sclerae ENMT: Ears: no external ear abnormality Nose: no external nose abnormality Mouth: + trismus Swelling noted to left cheek that is tender with mild palpation, no oral abscess or fluctuance noted Respiratory: normal respiratory effort, lungs clear to auscultation Cardiovascular: Rate/Rhythm: regular rate and regular rhythm Vessels: normal peripheral pulses Extremities: no edema Gastrointestinal (Abdomen): normal bowel sounds, soft, nontender, no hepatosplenomegaly Musculoskeletal: no cyanosis or clubbing, extremities motor strength 5/5 Skin: no rashes, warm and dry Neurologic: PERRL, EOMI, accommodation nl, no face palsy, no dysarthria Psychiatric: A+Ox3, euthymic affect Principal Diagnosis Dental abscess Discharge Exam GENERAL: Alert and oriented x3. NAD, on RA. HEENT: No pallor, no icterus. Pupils equal, round and reactive to light. Oral mucosa moist. Left cheek swellling-->improving. NECK: No JVD, no neck masses. HEART: S1 and S2 heard. Regular rate and rhythm. No murmur, no gallop. RESPIRATORY SYSTEM: Normal AP diameter. No accessory muscle use. No wheezing, no crackles. ABDOMEN: Soft, bowel sounds present, nontender, no distention. CENTRAL NERVOUS SYSTEM: No facial droop. Speech is clear. Obeys simple commands. Moves extremities. EXTREMITIES: No edema, no erythema seen. Discharge Data Allergies Allergy/AdvReac Type Severity Reaction Status Date / Time hydromorphone [From Dilaudid] Allergy Severe Difficulty Verified 12/04/21 20:21 Breathing nut - unspecified Allergy Severe Difficulty Verified 12/04/21 20:21 Breathing shellfish derived Allergy Severe Difficulty Verified 12/04/21 20:21 Breathing Consultations 12/06/21 19:50 Consult Oromaxillofacial Surgery Routine 12/06/21 20:03 ED Decision to Admit Stat Procedures Performed Operation Date: 12/07/21 08:00 Actual Procedures p Incision and Drainage Left Face(Left) - Nato Blackmon DMD s Extraction one tooth - Nato Blackmon DMD Hospital Course (1) Acute periapical abscess: Patient presenting from home with reports of worsening left cheek/dental pain and swelling, failure of outpatient therapy. Seen in the ED on 12/04 and diagnosed with dental abscess, discharged on clindamycin Soft tissue neck CT from 12/04/2021 shows 1.6 cm periapical lucency and adjacent 2.0 cm abscess Status post I&D 12/07/2021. Unasyn while in hospital, to be discharged on Augmentin for 10 more days. Probiotics added. Pain control with hydrocodone/Tylenol. Only Tylenol for mild pain. Patient being discharged home with following instruction at the point of discharge: Follow-up with your primary care physician within a week time. Get your blood work CBC done in a week time and have the results forwarded to your primary care physician. Follow-up with your dental surgeon as an outpatient as scheduled. You will be discharged on Augmentin for 10 days, probiotics will be added. Take your medications from the evening of 12/08/2021. Do not take clindamycin. Pain medication for few days worth will be prescribed, if ongoing pain/severe pain you will need evaluation by your primary care physician for further pain management. Take your medications as prescribed. Maintain oral hygiene. Continue with soft diet for few days. (2) GERD (gastroesophageal reflux disease): Continue PPI and H2 verona (3) DVT prophylaxis: SCDs Total Time Total Time Spent Total Time Spent (In Minutes): 35 Discharge Plan Discharge Items Patient Disposition: Home - Self-Care Reason For Visit: DENTAL ABSCESS Discharge Diagnosis: s/p I&D left facial abscess Condition on Discharge: Good Activity: Resume your previous activity Lifting: Gradually increase as tolerated Bathing: No limitations Exercise/Sports: Gradually increase as tolerated Driving/Machine Use: Resume 1 day after discharge Weightbearing: Full weightbearing Non-emergency contact: Surgeon Call non-emergency contact if: you have any medication questions, your symptoms worsen, your pain is worsening, your temperature is above 101.5, your wound has increased redness, your wound has increased drainage and your wound pain has increased Follow-up/Referrals: Nato Blackmon DMD [Physician] - 12/21/21 3:30 pm Leandro Warren PA-C [Primary Care Provider] - 12/13/21 11:00 am (Date & Time 12/13/2021 11:00 AM Provider Sienna Lay MD Department General Internal Medicine [facility] ) Diet: Full liquid and Clear liquid Diet Texture: Dental soft (bite-sized) Diet Comment: start off with clear liquids advance to full then soft Addtl Attending Provider Instructions: ADDITIONAL ACTIVITY RECOMMENDATIONS: * [place] teeth after every meal. It is very important to keep your mouth clean to prevent infection. * Starting tonight rinse with the Peridex as directed then 2 x a day * it is very important to keep well hydrated, this prevents fever and possible dry socket pain SPECIAL CARE INSTRUCTIONS: *It is not uncommon that between day 2-4 that your swelling will be at its worst this is very normal, do not be alarmed. * Massage and apply heat (hot water bottle or heating pad) for the next two days, as often as possible to the left side of your face * Tomorrow start rinsing your mouth with 1/2 teaspoon salt in 8 ounces warm water. This rinse should be used every 4-6 hours. * You may experience slight nausea. To prevent this, never take your medication on an empty stomach. If nauseated, take small sips of estefany kat until you feel better; then you may start on applesauce and toast. * Some swelling is common. It should gradually decrease within 4-5 days. * A certain amount of bleeding is to be expected. It is often possible to control mild oozing by placing folded gauze over the area and biting down for 30 minutes. If you are unable to control excessive bleeding, call Dr Blackmon at [phone] * You may experience some discomfort for a few days. If pain or swelling increases, Call Dr Blackmon * Return to the office for a follow up check up on: MondayDECEMBER 21 at 3:30 PM * office address--[address]. phone # [phone] Addtl School Coordinator Provider Instructions: Follow-up with your primary care physician within a week time. Get your blood work CBC done in a week time and have the results forwarded to your primary care physician. Follow-up with your dental surgeon as an outpatient as scheduled. You Will be discharged on Augmentin for 10 days, probiotics will be added. Take your medications from the evening of 12/08/2021. Do not take clindamycin. Pain medication for few days worth will be prescribed, if ongoing pain/severe pain you will need evaluation by your primary care physician for further pain management. Take your medications as prescribed. Maintain oral hygiene. Continue with soft diet for few days. Pending Studies at Discharge: Yes Studies:: Pathology results Stand-Alone Forms: My [facility], Smoking Cessation Medications and DC Order Prescriptions: New acetaminophen 325 mg Tablet 650 mg PO Q8H PRN (Reason: fever or pain) Qty: 60 0RF chlorhexidine gluconate 0.12 % Mouthwash 15 ml MT BID 10 Days Qty: 473 0RF Probiotic 3 billion cell capsule 3,000 mmu cells PO DAILY 10 Days Qty: 10 0RF Rx Instructions: administer with a meal Continued ondansetron HCl 8 mg tablet 8 mg PO Q8H PRN (Reason: nausea and vomiting) Qty: 10 0RF fluoxetine 10 mg Tablet 10 mg PO DAILY Rx Instructions: TOTAL 30 MG--TAKES WITH 20 MG TAB. albuterol sulfate [ProAir HFA] 90 mcg/actuation Hfa Aerosol Inhaler 2 puff INHALATION QID PRN (Reason: Shortness Of Breath Or Wheezing) famotidine 20 mg tablet 20 mg PO BID fluoxetine 20 mg capsule 20 mg PO DAILY Rx Instructions: TOTAL DOSE 30 MG--TAKES WITH 10 MG TAB. pantoprazole 40 mg tablet,delayed release (DR/EC) 40 mg PO HS omeprazole 40 mg capsule,delayed release(DR/EC) 40 mg PO QAM amoxicillin-pot clavulanate 875-125 mg tablet 1 tab PO Q12H 10 Days Qty: 20 0RF Changed hydrocodone-acetaminophen 5-325 mg tablet 1 tab PO Q6H PRN (Reason: pain (scale score 7-10)) 5 Days Qty: 20 0RF Discontinued clindamycin HCl 150 mg capsule 450 mg PO TID 7 Days Qty: 63 0RF Discharge Orders: Discharge Order (Routine); Ordered 12/08/21 Ordered By: Nato Smith/Other Patient Handouts: ED Abscess, Incision And Drainage, Dental Abscess Facial Cellulitis Admission Data Admit Date/Time: 12/06/21 20:16 Attending Provider: Ami Mallory Admit Provider: Ryan Park Primary Care Provider: Leandro Warren Other Providers: Nato Blackmon ; Ryan Park Other Interventions: Discharge Summary Assessment (RN) Last Done: 12/08/21 10:36
--- NOTE | 2021-12-21 21:52 | Operative Report ---
PG Post Operative Report Pre & Post Diagnosis Operation Date: 12/07/21 08:00 Pre-Op Diagnosis: Dental Abscess Post-Op Diagnosis: Dental Abscess I identified the patient and participated in the time-out.: Yes Procedure Operation Date: 12/07/21 08:00 Actual Procedures p Incision and Drainage Left Face(Left) - Nato Blackmon DMD s Extraction one tooth - Nato Blackmon DMD Surgeon Nato Blackmon DMD [employer]ob[employer] Repairer none Estimated Blood Loss 6 Findings significant facial and neck swelling left side Specimens C and S Drains none Anesthesia Type General Complications none Indications acute facial swelling, trismus and carious infected tooth # 19 Description of Procedure Actual Procedures p Incision and Drainage Submandibular Abscess; Removal of Tooth #28(Not Applicable) - Nato Blackmon DMD Once cleared for surgery general anesthesia was achieved, the eyes were protected by the anesthesia dept criteria. A time out was take for patient ID, antibiotics, equipment and position verification once all agreed the procedure began. Local anesthesia using Marcaine with a vasoconstrictor ( 1.8 ml per site) given into right inferior alveolar nerve A throat pack was placed after the oral cavity was irrigated with saline. Once a surgical level of anesthesia was obtained and the local anesthesia was gi sydnie time for the blocks the surgery was started. I turned my attention to the infection which was located in the floor of the mouth and submental area. The tongue was elevated and there was also swelling associated with tooth # 28 ( see CT scan report) Incision and Drainage Using a 15 blade an incision was made lateral to the alveolar ridge and medial to the duct of the submandibular gland. Once the incision was made a lot of pus extruded from the site. This drainage was cultured for anaerobic and aerobic bacteria. A curved hemostat was carefully placed into the infected space along the medial side of the lower jaw and into the submental space. Some further drainage was now allowed to escape. I palpated the chin and submental area and no further drainage was expressed. The area was irrigated with at least 100 ml of NS solution. I now turned my attention to remove the # 28 tooth. Lower # 18 The full thick Muco-periosteal flap was made on the facial aspect from # 26-30. The flap was reflected to expose the the subperiosteal space the bone adjacent to # 28. The rogue was used to remove bone, the tooth was removed with a 301 elevator, the mental nerve was intact, there was a large amount of granulation tissue on the apex and some more pus that was expressed. I attest to the content of the Intraoperative Record and any orders documented therein. Any exceptions are noted below.
== END 2021-12-08 13:40 | disposition home or self-care (01) ==
LOC: 3W 16:28 → ED 16:28 → SUATTDRO 20:16 → 3W 22:21
DX: Z79.899 Other long term (current) drug therapy; K21.9 Gastro-esophageal reflux disease without esophagitis; L03.211 Cellulitis of face; Z91.013 Allergy to seafood; K04.7 Periapical abscess without sinus; Z88.5 Allergy status to narcotic agent; Z91.018 Allergy to other foods